=== PATIENT | male | born 1955 | race Caucasian/White ===

== ENCOUNTER 2019-09-15 16:36 | Emergency (ER) | payer BC ==
[~2019-09-15] VITALS: Ht 188 cm; Wt 88.6 kg
[2019-09-15 16:41] VITALS: BP 137/90; PULSE 68; TEMP 97.9
[2019-09-15] MEDS ORDERED: ARAVA10 MG PO (17:17)
[2019-09-15] MEDS ORDERED: PLAQUENIL 200M200 MG PO (17:17)
[2019-09-15] MEDS ORDERED: HYGROTON 2525 MG/TAB PO (17:17)
[2019-09-15] MEDS ORDERED: NORVASC 5MG5 MG/TAB PO (17:18)
[2019-09-15] MEDS ORDERED: COZAAR100 MG PO (17:18)
[2019-09-15] MEDS ORDERED: PROSCAR 5MG5 MG PO (17:19)
[2019-09-15] MEDS ORDERED: LIPITOR20 MG PO (17:19)
[2019-09-15] MEDS ORDERED: FOLIC ACID 11 MG/TA1 PO (17:19)
[2019-09-15] MEDS ORDERED: FLOMAX 0.40.4 MG/CAP PO (17:19)
[2019-09-15] MEDS ORDERED: ASPIRIN E.C. 8181 MG PO (17:20)
[2019-09-15] MEDS ORDERED: VITAMIND3 5000 PO (17:20)
[2019-09-15] MEDS ORDERED: VITAMIN B125000 MCG PO (17:20)
== END 2019-09-15 17:40 | disposition home or self-care (01) ==
LOC: COL.ER 16:36
DX: K40.90 Unilateral inguinal hernia, without obstruction or gangrene, not specified as recurrent (principal); I10 Essential (primary) hypertension; E78.5 Hyperlipidemia, unspecified; Z79.82 Long term (current) use of aspirin; M06.9 Rheumatoid arthritis, unspecified